=== PATIENT | male | born 1970 | race Caucasian/White ===

== ENCOUNTER 2018-10-09 20:42 | Emergency (ER) | payer OTHER, SELFPAY ==
[2018-10-09 20:47] VITALS: BP 156/100; PULSE 63; RESP 14; TEMP 36.7; O2SAT 98
[2018-10-09] MEDS: KETOROLAC 60 MG/2 ML VIAL 30 MG IV (21:08)
[2018-10-09] MEDS: ONDANSETRON 4 MG/2 ML INJ IV (21:08)
[2018-10-09 21:24] LABS: Add Manual Diff / Slide Review NO; Basophils Absolute Auto 0 /uL (0-100); Basophils Percent Auto 0.4 % (0-2); Eosinophils Absolute Auto 200 /uL (0-450); Eosinophils Percent Auto 2.9 % (2-4); Hematocrit 45.6 % (41-53); Hemoglobin 15.4 g/dL (13.5-17.5); Lymphocytes Absolute Auto 3500 /uL (1100-4500); Mean Corpuscular HGB Conc 33.7 % (30-36); Mean Corpuscular Hemoglobin 32.4 PG (26-34); Mean Corpuscular Volume 96.1 fL (80-100); Monocytes Absolute Auto 1000 /uL (0-900); Monocytes Percent Auto 12.2 % (3-14); Neutrophils Absolute Auto 3300 /uL (1500-7000); Neutrophils Percent Auto 40.5 % (50-75); Platelet Count 329 X10^3/uL (150-400); Red Blood Cell Count 4.75 X10^6/uL (4.5-5.9); Red Cell Distribution Width 13.6 % (11.6-14.8); White Blood Cell Count 8.1 X10^3/uL (4.5-11.0)
--- NOTE | 2018-10-09 21:26 | ED_ITS ---
HPI - Abdominal Pain General Chief Complaint: Abdominal Pain Stated Complaint: back and groin pain severe Time Seen by Provider: 10/09/18 21:15 Source: patient Mode of arrival: ambulatory Limitations: no limitations History of Present Illness HPI narrative: Patient is a 48-year-old male who presents bilateral back pain radiating to his groin. He is unable to distinguish which side it is coming from. Pain is been quite intense he has been nauseated at times. No history of kidney stones he denies any hematuria. This started an hour and a half ago. MD complaint: abdominal pain and flank pain Onset (ago): hour(s) (1.5) Pain Consistency: constant Quality: cramping Relieving factors: nothing Related Data Previous Rx's Medication Instructions Recorded hydrocodone-acetaminophen [Reeder] 1 tab PO Q4-6H PRN #10 tab 10/09/18 ondansetron 4 mg PO Q6-8H PRN #10 tab 10/09/18 Allergies Allergy/AdvReac Type Severity Reaction Status Date / Time No Known Drug Allergies Allergy Verified 10/09/18 20:50 Review of Systems Review of Systems GENERAL: Denies chills, fatigue, malaise, fever, sweats, travel HEENT: Denies sinus pain, ear pain, sore throat, difficulty swallowing, neck pain RESPIRATORY: Denies dyspnea, cough, wheezing, hemoptysis, sputum. CARDIOVASCULAR: Denies chest pain, palpitations, orthopnea, edema GASTROINTESTINAL: Diffuse all over abdominal pain see HPI : Bilateral flank MUSCULOSKELETAL: Denies weakness, joint pain, or bony pain SKIN: No rash, no erythema, no pruritus NEUROLOGIC: Denies weakness, dizziness, headache, numbness, change in speech, confusion PSYCHIATRIC: No concerning psychosocial issues. 12 point review of systems is negative except for those stated above and HPI COUNT INCLUDES THE [facility] Surgical History History of vasectomy (Acute) Social History Smoking Status: Current every day smoker Social History Smoking Status: Current every day smoker Exam Initial Vital Signs Initial Vital Signs: Vital Signs Temperature 98.1 F 10/09/18 20:47 Pulse Rate 63 10/09/18 20:47 Respiratory Rate 14 10/09/18 20:47 Blood Pressure 156/100 H 10/09/18 20:47 Pulse Oximetry 98 10/09/18 20:47 GENERAL: Patient appears quite uncomfortable on gurney HEENT: Head atraumatic,EOMI, pupils reactive CARDIOVASCULAR: Regular rate and rhythm without murmurs, rubs or gallops. RESPIRATORY: Breath sounds equal bilaterally, no wheezes rales or rhonchi. ABDOMEN: Soft diffusely tender slightly more tender in right upper quadrant no guarding or rebound : Bilateral flank pain possibly more on right than left EXTREMITIES: Normal range of motion, no clubbing or edema. Neurovascularly intact NEUROLOGICAL: Alert and oriented x4.Normal gait and speech. Cranial nerves II through XII grossly intact. SKIN: Warm, dry, no laceration, no petechiae, no rashes or lesions. Course Orders Ordered: ED Orders 10/09/18 20:45 Complete Blood Count AUTO DIFF Stat Comprehensive Metabolic Panel Stat Lipase Stat 10/09/18 21:26 CT kidney ureter bladder (KUB) Stat 10/09/18 21:58 US abdomen complete Stat Discontinued Medications Hydrocodone Bitart/Acetaminophen (Vicodin Prepack) 1 bottle MISC SEEINSTR ONE Stop: 10/09/18 23:30 Last Admin: 10/09/18 23:45 Dose: 1 bottle Hydromorphone HCl (Dilaudid) 0.5 mg IV NOW ONE Stop: 10/09/18 22:28 Last Admin: 10/09/18 22:51 Dose: 0.5 mg Sodium Chloride (Normal Saline 0.9%) 1,000 mls @ 1,000 mls/hr IV BOLUS ONE Stop: 10/09/18 22:25 Last Infusion: 10/09/18 23:24 Dose: 0 mls/hr Admin: 10/09/18 21:56 Dose: 1,000 mls/hr Ketorolac Tromethamine (Toradol) 30 mg IV NOW ONE Stop: 10/09/18 21:07 Last Admin: 10/09/18 21:08 Dose: 30 mg Morphine Sulfate (Morphine) 4 mg IV NOW ONE Stop: 10/09/18 21:27 Last Admin: 10/09/18 21:53 Dose: 4 mg Ondansetron HCl (Zofran) 4 mg IV NOW ONE Stop: 10/09/18 21:07 Last Admin: 10/09/18 21:08 Dose: 4 mg Ondansetron HCl (Zofran Odt Prepack) 1 bottle MISC SEEINSTR ONE Stop: 10/09/18 23:30 Last Admin: 10/09/18 23:45 Dose: 1 bottle Consultations Consultation #1: dr. sorenson on-call surgery updated patient's symptoms test results. At this time no indication for emergent surgery recommend elective surgery as outpatient. Time: 23:14 Vital Signs - 8 hr 10/09/18 20:47 10/09/18 23:37 10/09/18 23:55 Temperature 98.1 F 98.2 F Pulse Rate 63 48 L 57 L Respiratory Rate 14 20 16 Blood Pressure 156/100 H 110/69 Blood Pressure [Left Arm] 109/71 Pulse Oximetry 98 99 98 MDM - Abdominal Pain Lab Data Attestation: I reviewed the patient's lab results. Result diagrams: 10/09/18 20:45 10/09/18 20:45 Lab Results 10/09/18 10/09/18 Range/Units 20:45 20:45 WBC 8.1 (4.5-11.0) X10^3/uL RBC 4.75 (4.5-5.9) X10^6/uL Hgb 15.4 (13.5-17.5) g/dL Hct 45.6 (41-53) % MCV 96.1 (80-100) fL MCH 32.4 (26-34) PG MCHC 33.7 (30-36) % RDW 13.6 (11.6-14.8) % Plt Count 329 (150-400) X10^3/uL Neut % (Auto) 40.5 L (50-75) % Lymph % (Auto) 44.0 H (25-40) % [place] % (Auto) 12.2 (3-14) % Eos % (Auto) 2.9 (2-4) % Baso % (Auto) 0.4 (0-2) % Neut # (Auto) 3300 (9114-0890) /uL Lymph # (Auto) 3500 (6198-3966) /uL [place] # (Auto) 1000 H (0-900) /uL Eos # (Auto) 200 (0-450) /uL Baso # (Auto) 0 (0-100) /uL Sodium 140 (137-145) mmol/L Potassium 3.9 (3.4-5.1) mmol/L Chloride 108 H (98-107) mmol/L Carbon Dioxide 21 L (22-32) mmol/L BUN 10 (9-20) mg/dL Creatinine 0.90 (0.66-1.25) mg/dL Estimated GFR > 60.0 (>60) mL/min BUN/Creatinine Ratio 11.1 (6-22) Glucose 111 H (70-100) mg/dL Calcium 9.2 (8.4-10.2) mg/dL Total Bilirubin 0.4 (0.2-1.3) mg/dL AST 31 (17-59) IU/L ALT 31 (21-72) IU/L Alkaline Phosphatase 50 (38-126) U/L Total Protein 8.1 (6.3-8.2) g/dL Albumin 4.6 (3.5-5.0) g/dL Globulin 3.5 (1.7-4.1) g/dL Albumin/Globulin Ratio 1.3 (1.0-2.8) Lipase 72 (23-300) U/L Imaging Data CT scan - abdomen: Radiologist's impression: PROCEDURE: CT KIDNEY URETER BLADDER (KUB) INDICATIONS: bilateral flank pain TECHNIQUE: Noncontrast 5 mm thick sections acquired from the diaphragms to the symphysis. 5 mm thick coronal and sagittal reformats were then performed. For radiation dose reduction, the following was used: automated exposure control, adjustment of mA and/or kV according to patient size. COMPARISON: None. FINDINGS: Image quality: Excellent. Lung bases: Lung bases are clear. Heart size is normal. Urinary system: Both kidneys are normal in size. No kidney stones. No hydronephrosis or perinephric fat stranding. Both ureters appear non-dilated throughout their expected courses. Bladder wall thickness is normal; no calcified bladder stones. Bilateral vasectomy clips noted. Other solid organs: Liver is normal in size. Gallbladder contains a 1.5 cm stone in the gallbladder neck. Pancreas is normal in contours. Spleen is normal in size. No adrenal nodules. Peritoneum and bowel: Unenhanced bowel loops demonstrate normal wall thickness and caliber. No free fluid or air. The appendix is normal. Nodes and vessels: No retroperitoneal or mesenteric adenopathy by size criteria. Stranding and small nodules noted in the mesentery. There is a lower normal fat surrounding the mesenteric nodules. Findings compatible with sclerosing mesenteritis. Aorta and inferior vena cava are normal in caliber. Abdominal wall: No ventral hernias. Pelvis: No free pelvic fluid. No inguinal hernias or adenopathy. Bones: No suspicious bony lesions. No vertebral body compression fractures. IMPRESSION: 1. No renal stones are hydronephrosis. 2. The appendix is normal. 3. Sclerosing mesenteritis. 4. 1.5 cm stone in the gallbladder neck. No gallbladder wall thickening or pericholecystic fluid by CT imaging. 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 His he is afebrile without leukocytosis elevated bilirubin or l ipase. No sign of acute cholecystitis or choledocholithiasis. I have spoken with surgery is agrees that at this time patient can be discharged home with oral pain meds as and have elective surgery. Discharge Plan Departure Patient Disposition: Home Clinical Impression: Cholelithiasis Qualifiers: Cholelithiasis location: gallbladder Cholecystitis presence: without cholecystitis Biliary obstruction: without biliary obstruction Qualified Code(s): K80.20 - Calculus of gallbladder without cholecystitis without obstruction Discharge Date/Time: 10/09/18 23:55 Interventions: ED Discharge Assessment Last Done: 10/09/18 23:55 Instructions: DI for Gallstones Activity Restrictions/Additional Instructions: *You have been diagnosed with cholelithiasis *What to do: You do have 1 very large gallstone stuck in the neck of gallbladder you will need elective gallbladder surgery. At this time no indication for emergent surgery. I spoke with the surgeon on-call who recommend to follow up in clinic next week. *Continue to take medications as directed Reeder 1 tab every 4 hr or 2 tabs every 6 hr as needed for severe pain Motrin 600 mg every is 68 hr if needed for [id number] pain *Follow up with your primary care provider in 2-3 days, call Dr. Sorenson is a office Thursday to schedule follow-up appointment *Return to ER if you should have increasing pain persistent vomiting fever or any new, worsening or concerning symptoms Prescriptions: New hydrocodone-acetaminophen [Reeder] 5-325 mg tablet 1 tab PO Q4-6H PRN (Reason: pain) Qty: 10 RF: 0 ondansetron 4 mg tablet,disintegrating 4 mg PO Q6-8H PRN (Reason: nausea and vomiting) Qty: 10 RF: 0 Referrals: [facility] [Provider Group]
[2018-10-09 21:27] LABS: Alanine Aminotransferase 31 IU/L (21-72); Albumin 4.6 g/dL (3.5-5.0); Albumin Globulin Ratio 1.3 (1.0-2.8); Alkaline Phosphatase 50 U/L (38-126); Aspartate Aminotransferase 31 IU/L (17-59); BUN Creatinine Ratio 11.1 (6-22); Bilirubin Total 0.4 mg/dL (0.2-1.3); Blood Urea Nitrogen 10 mg/dL (9-20); Calcium 9.2 mg/dL (8.4-10.2); Carbon Dioxide 21 mmol/L (22-32); Chloride 108 mmol/L (98-107); Estimated Glomerular Filt Rate > 60.0 mL/min (>60); Globulin 3.5 g/dL (1.7-4.1); Glucose 111 mg/dL (70-100); HEMOLYSIS < 15 (0-50); Lipase 72 U/L (23-300); Potassium 3.9 mmol/L (3.4-5.1); Sodium 140 mmol/L (137-145); Total Protein 8.1 g/dL (6.3-8.2)
[2018-10-09] MEDS: MORPHINE 4 MG/ML INJ IV (21:53)
[2018-10-09] MEDS: SODIUM CHLORIDE 0.9% 1,000 ML 1000 ML IV (21:56)
--- NOTE | 2018-10-09 21:58 | DI.US.S_ITS ---
PROCEDURE: US ABDOMEN COMPLETE INDICATIONS: RIGHT UPPER QUADRANT PAIN TECHNIQUE: Real-time scanning was performed of the abdominal and retroperitoneal organs, with image documentation. COMPARISON: None. FINDINGS: Liver: Liver is normal in size and homogeneous increased in echotexture. Gallbladder: Demonstrates a 24 mm calculus within the neck. No gallbladder wall thickening. Positive sonographic Begum's sign. Biliary ducts: Intrahepatic bile ducts are non-dilated. Extrahepatic bile duct caliber measures 3.9 mm. Normal is 6-7 mm or less in diameter, or 10 mm or less post-cholecystectomy. Pancreas: Visualized portions of the pancreas are sonographically normal. Spleen: Spleen is normal in size and homogeneous in echotexture. Kidneys: Kidneys are normal in size and echotexture. Right kidney measures 10.3 cm long; left kidney measures 11.5 cm long. No hydronephrosis or nephrolithiasis. No solid masses. Aorta: Visualized aorta is normal in caliber at less than 3 cm. Iliacs: Proximal common iliac arteries are normal in caliber at less than 2.5 cm. IVC: Intrahepatic inferior vena cava is patent. Miscellaneous: No free abdominal fluid. IMPRESSION: No gallbladder neck calculus with associated pain overlying the gallbladder. No evidence of gallbladder wall thickening. Clinical correlation recommended. Concordant with preliminary interpretation. Dictated by: Lilia Davis M.D. on 10/10/2018 at 10:28 Approved by: Lilia Davis M.D. on 10/10/2018 at 10:29
[2018-10-09] MEDS: HYDROMORPHONE 1 MG INJ 0.5 MG IV (22:51)
[2018-10-09 23:37] VITALS: BP 109/71; PULSE 48; RESP 20; O2SAT 99
[2018-10-09] MEDS: ONDANSETRON 4 MG ODT PREPACK 1 BOTTLE MISC (23:45)
[2018-10-09] MEDS: HYDROCODONE/ACET 5/325 PREPACK 1 BOTTLE MISC (23:45)
[2018-10-09 23:55] VITALS: BP 110/69; PULSE 57; RESP 16; TEMP 36.8; O2SAT 98
== END 2018-10-09 23:55 | disposition home or self-care (01) ==
PROVIDERS: Nurse Practitioner Family; Emergency Provider Emergency Medicine
DX: K80.20 Calculus of gallbladder without cholecystitis without obstruction (principal)
CPT/HCPCS: 36591; 74176; 76700; 80053; 83690; 85025; 96361; 96374; 96375; 99283; 99284; J1170; J1885; J2270; J2405

== ENCOUNTER 2018-10-21 12:28 | Day surgery (SDC) | payer OTHER, SELFPAY ==
[2018-10-20 12:25] VITALS: BMI 30.9
[2018-10-21] VITALS (10 sets, daily range): BP systolic 121–150; BP diastolic 76–99; PULSE 56–87; RESP 10–16; TEMP 35.9–36.8; O2SAT 95–99; BMI 29.9
--- NOTE | 2018-10-21 | PATH_ITS ---
[facility] Accession Number: [id number] . 01 Material submitted: . GALLBLADDER . 02 Diagnosis: Gallbladder, Laparoscopic Cholecystectomy: Acute and c hronic cholecystitis, cholesterolosis, and cholelithiasis. One benign cystic duct lymph node (0). MRV/10/25/2018 . 02 Electronically signed: . Cata Rodriguez MD, Pathologist NPI- [id number] . 01 Gross description: . Received in formalin, labeled gallbladder, is an opened gallbladder (length-9.1 cm, diameter-3.2 cm) with lemons-pink smooth and shiny serosa and a patent cystic duct. A possible lymph node (0.8 x 0.5 x 0.2 cm) is identified. The lumen is void of contents. The mucosa is pale morgan smooth and flat. The wall is up to 0.1 cm thick. No nodules, masses or lesions are identified. Also, submitted is one green solid gritty calculus (1.5 x 1.2 x 0.8 cm) with a clear crystalline cut surface. Section code: (A1) cystic duct resection margin and two serial sections from the body; (A2) two longitudinal sections from the fundus; (A3) one intact possible lymph node. ([id number]) /[facility] . 02 Pathologist provided ICD-10: K81.2 . 02 CPT . 564085 Performed at: 01 [facility] [address] [id number] MD Rudy Fleming MD Phone: [phone] Performed at: [address] [facility] [id number] [place], [place] [id number] MD Ginny Chavez MD Phone: [phone]
[2018-10-21] MEDS: LACTATED RINGERS 1,000 ML 42 ML IV (13:29)
--- NOTE | 2018-10-21 14:18 | PM.PREOP ---
Pre-operative Note Interval Note History & Physical reviewed/Exam performed by Physician: Yes Changes to H&P: No H&P completed within 30 days and has changed as indicated here:: No change
[2018-10-21] MEDS: CEFAZOLIN 2 GM/100 ML FROZ.PIGGY IV (14:48)
--- NOTE | 2018-10-21 15:11 | SUR.OPER ---
Supine on padded OR bed, head on pillow, arms secured on padded arm boards at <90 degrees abduction, legs uncrossed, safety belt at thigh, tape over blanket over lower legs.
[2018-10-21] MEDS: BUPIVACAINE 0.5% (PF) VIAL 30 ML INJ (15:21)
[2018-10-21] MEDS: fentaNYL 100 MCG/2 ML INJ 50 MCG IV ×2 (16:15→16:21)
--- NOTE | 2018-10-21 16:20 | PM.OP.1 ---
Operative Date/Time/Diagnoses Date of procedure: 10/21/18 Time of procedure: 16:12 Pre-op diagnosis: cholelithiasis, cholecystitis Post-op diagnosis: same Procedure & Clinicians Procedure: Laparoscopic cholecystectomy Same procedure as scheduled: Yes Indications: Right upper quadrant pain the. Gallstone wedged in the end of the gallbladder Surgeon: Pete Hawley Click Yes if Unassisted: Yes Anesthesia Type: General Operative Notes Closure Type: primary Specimen(s): other (Gallbladder and single stone) Estimated Blood Loss (mL): 5 Blood products transfused: none Procedure in detail: The patient is placed supine on the operating table and underwent general endotracheal anesthesia. He was prepped and draped in the usual fashion. Local anesthetic was infiltrated beneath his umbilicus and a curvilinear incision made. It was carried down under direct vision in the peritoneal cavity. Stay sutures of 0 Vicryl were placed in the fascia. And the son cannula was inserted. The abdomen is insufflated. Patient was repositioned 3 additional 5 mm ports were placed under the right costal margin. The gallbladder was identified as a thickened white structure that had adhesions to its surface. It was lifted and the adhesions taken down bluntly with cautery. The end of the gallbladder was identified. Dissection was begun here. A cystic cyst duct was identified and from surrounding structures. Three clips were placed across it and it was divided leaving 2 in the patient a small vascular appearing structure adjacent to this was clipped and divided. What appeared to be the cystic artery was from surrounding structures. Three clips were placed on it was divided leaving to the patient. There was a small side luke bleeding and clips were placed across it controlled bleeding. Gallbladder is then dissected from its bed in the liver using cautery. It was detached and removed through the umbilical port. The right upper quadrant irrigated and suctioned free of fluid. There was no ongoing bleeding. The ports were all removed. The wounds were irrigated. Stay sutures at the umbilicus were tied after placing an additional 2 0 PDS suture between the other 2 sutures. The skin was closed in all areas with interrupted 4 0 Vicryl subcuticular stitches and Steri-Strips. Dressing was applied to all and the patient was awakened, extubated taken recovery room good condition. Complications: none Condition: stable Disposition: PACU
[2018-10-21] MEDS: OXYCODONE/ACETAMINOPHEN 5/325 TABLET 1 TAB PO ×2 (16:36→17:02)
[2018-10-21] MEDS: ONDANSETRON 4 MG/2 ML INJ IV (17:12)
[2018-10-21] MEDS: KETOROLAC 30 MG/ML VIAL IV (17:40)
--- NOTE | 2018-10-21 18:09 | SUR.PHASEII ---
Prolonged OPD stay due to pain control and nausea. Difference noted post Ketorolac. Desires d/c now and such is done.
== END 2018-10-21 18:07 | disposition home or self-care (01) ==
PROVIDERS: PCP Physician Assistant; Visit Provider Specialist
PROC: 0FT44ZZ Resection of Gallbladder, Percutaneous Endoscopic Approach (ICD-10-PCS; CPT 47562; principal; 2018-10-21 14:00)
DX: K80.10 Calculus of gallbladder with chronic cholecystitis without obstruction (principal); F17.210 Nicotine dependence, cigarettes, uncomplicated
CPT/HCPCS: 47562; 88304; J0690; J1100; J1885; J2250; J2405; J2704; J3010

== ENCOUNTER 2023-11-28 12:02 | Emergency (ER) | payer OTHER, SELFPAY ==
[2023-11-28 12:13] VITALS: BP 127/76; PULSE 68; RESP 16; TEMP 37.3; O2SAT 97; BMI 30.1
--- NOTE | 2023-11-28 12:56 | PC.NURSE ---
pt states he has some stuff fall into his eye on possibly thursday this week at work but his eye only started bothering him yesterday. he did flush it out at home but this morning it was sticky and discomfort has increased. points to outside of eye and describes feeling of something stuck under his upper eye lid.
[2023-11-28] MEDS: FLUORESCEIN 1 MG STRIP EYE-RIGHT (13:10)
[2023-11-28] MEDS: PROPARACAINE 0.5% OPHTH SOL 1 DROPS EYE-RIGHT (13:10)
--- NOTE | 2023-11-28 13:39 | ED_ITS ---
HPI - Eye Problem <Sujey Patel PA-C - Last Filed: 11/28/23 15:28> General Chief complaint: Eye Problems Stated complaint: something in right eye Time Seen by Provider: 11/28/23 12:46 Source: patient and family Mode of arrival: Ambulatory History of Present Illness HPI Narrative: 53-year-old male here today for concerns with his right eye. 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 He initially had some mild irritation of the right eye but then it went away but 2 days later he woke up with increased irritation of the right eye and a foreign body sensation. States this started yesterday and got worse today. He woke up with some crusting of his right eye. He does not have any vision changes or photosensitivity. States it is uncomfortable but not painful. No pain when moving his eye around. He does not wear contacts. Related Data Previous Rx's Medication Instructions Recorded ondansetron 4 mg disintegrating 4 mg PO Q6-8H PRN nausea and 10/09/18 tablet vomiting #10 tabs oxycodone-acetaminophen 5 mg-325 See Rx Instructions .Route 10/21/18 mg tablet (Percocet) .COMPLEX PRN painful procedure #14 tabs erythromycin 5 mg/gram (0.5 %) eye 1 cm EYE-RIGHT QID 7 days #3.5 11/28/23 ointment grams Allergies Allergy/AdvReac Type Severity Reaction Status Date / Time No Known Drug Allergies Allergy Verified 11/03/18 15:31 Review of Systems <Sujey Patel PA-C - Last Filed: 11/28/23 15:28> Review of Systems ROS Unobtainable: All systems reviewed & are unremarkable except as noted in HPI and below Patient History <Sujey Patel PA-C - Last Filed: 11/28/23 15:28> Medical History (Updated 11/28/23 @ 13:40 by Sujey Patel PA-C) Apnea Gallstone Surgical History History of vasectomy Social History marital status: household members: spouse occupational status: employed Smoking Status: Current every day smoker alcohol intake: current substance use type: does not use Smoking Status: Current every day smoker alcohol intake frequency: 0-2 drinks per day Substance Use Type: does not use Exam <Sujey Patel PA-C - Last Filed: 11/28/23 15:28> Narrative Exam Narrative: GENERAL: Well-developed, well-nourished, appears stated age. In no acute distress HEAD: Atraumatic. Normocephalic. EYES: Pupils equal round and reactive. Extraocular motions intact. No scleral icterus. No injection or drainage. With fluorescein staining: No foreign body noted of the cornea or conjunctiva. No abrasions noted. No rust ring. With eyelid eversion, there is a very small white papule noted in the area of patient's complaint with some mild surrounding erythema. ENT: Nose without bleeding, purulent drainage. Airway patent. NECK: Trachea midline. Non tender RESPIRATORY: Respiratory rate and effort normal EXTREMITIES: No edema or joint tenderness. NEURO: AOx3. SKIN: No rash or erythema of visible areas Initial Vital Signs Initial Vital Signs: Vital Signs Temperature 99.1 F 11/28/23 12:13 Pulse Rate 68 11/28/23 12:13 Respiratory Rate 16 11/28/23 12:13 Blood Pressure 127/76 11/28/23 12:13 Pulse Oximetry 97 11/28/23 12:13 Oxygen Delivery Method Room Air 11/28/23 12:13 <Tarsha Frank DO - Last Filed: 11/29/23 07:57> Initial Vital Signs Initial Vital Signs: Vital Signs Temperature 99.1 F 11/28/23 12:13 Pulse Rate 68 11/28/23 12:13 Respiratory Rate 16 11/28/23 12:13 Blood Pressure 127/76 11/28/23 12:13 Pulse Oximetry 97 11/28/23 12:13 Oxygen Delivery Method Room Air 11/28/23 12:13 Course <Sujey Patel PA-C - Last Filed: 11/28/23 15:28> Orders Ordered: Discontinued Medications Fluorescein Sodium (Fluorescein 1 Mg Strip) 1 mg EYE-RIGHT NOW ONE Stop: 11/28/23 13:07 Last Admin: 11/28/23 13:10 Dose: 1 mg Documented By: TRACY Proparacaine HCl (Proparacaine 0.5% Ophth Malaika) 1 drops EYE-RIGHT NOW ONE Stop: 11/28/23 13:00 Last Admin: 11/28/23 13:10 Dose: 1 drops Documented By: TRACY Vital Signs Vital signs: Vital Signs - 8 hr 11/28/23 12:13 11/28/23 13:54 Temperature 99.1 F Pulse Rate 68 61 Respiratory Rate 16 18 Blood Pressure 127/76 109/72 Pulse Oximetry 97 97 Oxygen Delivery Method Room Air Room Air <Tarsha Frank DO - Last Filed: 11/29/23 07:57> Orders Ordered: Discontinued Medications Fluorescein Sodium (Fluorescein 1 Mg Strip) 1 mg EYE-RIGHT NOW ONE Stop: 11/28/23 13:07 Last Admin: 11/28/23 13:10 Dose: 1 mg Documented By: TRACY Proparacaine HCl (Proparacaine 0.5% Ophth Malaika) 1 drops EYE-RIGHT NOW ONE Stop: 11/28/23 13:00 Last Admin: 11/28/23 13:10 Dose: 1 drops Documented By: TRACY Vital Signs Vital signs: Vital Signs - 8 hr 11/28/23 12:13 11/28/23 13:54 Temperature 99.1 F Pulse Rate 68 61 Respiratory Rate 16 18 Blood Pressure 127/76 109/72 Pulse Oximetry 97 97 Oxygen Delivery Method Room Air Room Air MDM - Eye Problem <Sujey Patel PA-C - Last Filed: 11/28/23 15:28> MDM Narrative Medical decision making narrative: [] Multiple etiologies for patient's symptoms considered including, but not limited to: Corneal abrasion, corneal foreign body, conjunctival abrasion or foreign body, conjunctivitis Patient is not endorsing any concerning eye complaints such as eye pain, changes in visual acuity, pain with extraocular eye movements. His examination reveals very mild injection of the conjunctiva but otherwise no swelling of the eye and he does not appear to be very uncomfortable or in any distress. With fluorescein staining and proparacaine I looked all over including everting the upper eyelid. There was no evidence of an abrasion or foreign body of the conjunctiva or the cornea. On his all lateral upper inner eyelid there was a very small white papule noted in his area of complaint with some surrounding erythema. This could be from a prior foreign body or it could be possibly a small retained foreign body. Recommend that patient use erythromycin eye ointment for the next few days and if he fails to have any improvement he should follow up with Ophthalmology. He has not have any indications to follow up with Ophthalmology immediately. We did discuss signs and symptoms of worsening condition and when to return to the ED or have urgent ophthalmology consultation. Findings and discharge diagnosis discussed with patient/family followed by verbalization of understanding Return precautions discussed with patient/family whom verbalize understanding of diagnosis and plan Discharge Plan Departure Patient Disposition: Home Clinical Impression: Irritation of right eye Instructions: DI for Foreign Body in the Eye Activity Restrictions/Additional Instructions: Thank you for choosing us to care for you today. You were seen for irritation of the right eye. Using a special dye and lamp we inspected your eye for any foreign body or scratches and none were seen. You do have a small white bump in the area of irritation which could indicate prior foreign body or one that is still retained. I recommend using erythromycin ointment as prescribed and if you have no improvement in the next 3 days please contact Ophthalmology to schedule an appointment. If you have any significant eye pain, vision changes, difficulty moving your eye, or other new or worsening concerns with your eye please return to the emergency department. Prescriptions: New erythromycin 5 mg/gram (0.5 %) ointment 1 cm EYE-RIGHT QID 7 Days Qty: 3.5 0RF No Action ondansetron 4 mg tablet,disintegrating 4 mg PO Q6-8H PRN (Reason: nausea and vomiting) Qty: 10 0RF oxycodone-acetaminophen [Percocet] 5-325 mg tablet See Rx Instructions .ROUTE .COMPLEX PRN (Reason: painful procedure) Qty: 14 0RF Rx Instructions: Take 1 or 2 pills every 6 hr if needed for pain. May constipate Referrals: Ilana Wen MD [Physician] - (possible retained FB in R eye, upper lid. small white bump noted when lid eversion done. ) Stand Alone Forms: Patient Portal/API ED Sign-out <Tarsha Frank DO - Last Filed: 11/29/23 07:57> Cosign ED Attending Suzannaature Attestation: I was available for consultation.
[2023-11-28 13:54] VITALS: BP 109/72; PULSE 61; RESP 18; O2SAT 97
== END 2023-11-28 13:58 | disposition home or self-care (01) ==
PROVIDERS: Emergency Provider Physician Assistant
DX: H57.89 Other specified disorders of eye and adnexa (principal)
CPT/HCPCS: 99282